=== PATIENT | male | born 1925 | race Caucasian/White ===

== ENCOUNTER 2017-05-12 05:13 | Inpatient (IN) | payer MEDICARE, OTHER ==
[~2017-05-12] VITALS: Ht 180.3 cm; Wt 92.1 kg
--- NOTE | ~2017-05-12 | CON ---
PATIENT'S NAME: JENIFER MEJÍA [facility] AGE: 89 Y [address] ROOM: G6332 [place], [place] [address] LOCATION: GPCU ADMIT DATE: 05/12/2017 Consultation DISCHARGE DATE: FAMILY PHYSICIAN: MARLIN SIDHU MD (ALMA) ATTENDING PHYSICIAN: DARLENE SÁNCHEZ REFERRING PHYSICIAN: Darlene Sánchez MD HISTORY OF PRESENT ILLNESS: The patient is an 89-year-old man who went last night to the emergency room in [facility] reporting several episodes of dyspnea at rest with chest discomfort and intense diaphoresis. Evaluation there showed that there were some changes in his electrocardiogram, but not ST elevation or depression. The troponin was negative. The proBNP was in the normal range and as the patient had a previous history of remote coronary intervention, Manda Jade PA-C who was in the facility contacted me for consultation. She sent me the electrocardiogram which had a new incomplete right bundle and S1- Q3-T3 configuration. Unfortunately, we could not obtain the D-dimer at [facility] and the patient could not have a CT angiogram or the chest because of compromised renal function. So the plan was to start him on intravenous heparin and then transport him to [facility] for a definite diagnosis and management. The evaluation also at [facility] showed a possible pneumonia on the right side on his chest x-ray. The patient then arrived at [facility] in stable condition. REVIEW OF SYSTEMS: There is no weight loss or gain. He has chronic dyspnea on exertion and he saw some specialists for that, he tells me about 2 years ago and he did not think that he was improved and he did not follow up. He has no history of syncope. He has nocturia x2 or 3 and difficulty initiating a stream of urine without recent evaluation of his prostate. He has recurrent diarrhea. He follows with the [facility] in [place] and yearly with [facility] from [place]. The patient still lives in his own home with his and continues to drive, remaining systems were negative. PAST SURGICAL HISTORY: None. PAST MEDICAL HISTORY: Coronary artery disease. The patient according to a note from [facility], he had a directional atherectomy of the left anterior descending artery in 1992, and subsequent catheterization in 2010 showed a patent left anterior descending and occluded diagonal and medical therapy was recommended. He had an echocardiogram in 2014 which showed a normal ejection fraction of 55% to 60% and pulmonary hypertension with estimated 59 mmHg systolic. OUTPATIENT MEDICATIONS: PATIENT'S NAME: JENIFER MEJÍA [facility] AGE: 89 Y [address] ROOM: G6332 [place], [place] [address] LOCATION: GPCU ADMIT DATE: 05/12/2017 Consultation DISCHARGE DATE: FAMILY PHYSICIAN: MARLIN SIDHU MD (ALMA) ATTENDING PHYSICIAN: DARLENE SÁNCHEZ 1. Omeprazole 40 mg once a day. 2. Ranitidine 150 mg once a day. 3. Triamterene and hydrochlorothiazide 50/25 half a tablet daily. 4. Metoprolol tartrate 50 mg half a tablet daily. 5. Simvastatin 40 mg half a tablet daily. 6. Clopidogrel 75 mg daily. 7. Multivitamin once a day. 8. Tamsulosin 0.4 mg daily. 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 Quit smoking about 30 years ago. No significant alcohol use. FAMILY HISTORY: Both his parents in their 90s. His father had a stroke and [facility]. His mother from pneumonia. PHYSICAL EXAMINATION: GENERAL: Alert, elderly gentleman. VITAL SIGNS: He is 5 feet 11 inches, weighs 89.7 kg. Heart rate was 72 beats per minute on the electrocardiogram and blood pressure 144/88. Saturation 99% on 2 L. SKIN: Warm and dry. There is discoloration above the ankles, especially on the right side. HEAD: Normocephalic and atraumatic. EYES: No xanthelasmas. NECK: Supple. No jugular venous distention. No carotid bruits. LUNGS: Overall clear. HEART: First and second heart sounds. No significant murmur. Occasional ectopy. CHEST: There is increased anterior-posterior diameter of the chest, especially on the right side. ABDOMEN: Soft and nontender. No masses. LOWER EXTREMITIES: Trace edema. There is normal left dorsalis pedis pulse, possibly decreased on the right side. DIAGNOSTIC STUDIES: In addition to what I discussed in the history of present illness, his BUN was 32, creatinine 1.67, potassium 3.2, alkaline phosphatase 263, AST 52, ALT 73, proBNP 331, CK-MB 0.9, estimated GFR 39. PT and PTT normal. Troponin is below the measurable scale. WBC 6.1, hemoglobin 15, hematocrit 44.5, platelets 143. Electrocardiogram, sinus rhythm with premature atrial contractions. New incomplete right bundle-branch block. IMPRESSION: PATIENT'S NAME: JENIFER MEJÍA [facility] AGE: 89 Y [address] ROOM: [place] [address] LOCATION: GPCU ADMIT DATE: 05/12/2017 Consultation DISCHARGE DATE: FAMILY PHYSICIAN: MARLIN SIDHU MD (ALMA) ATTENDING PHYSICIAN: DARLENE SÁNCHEZ The differential is between pulmonary embolism, unstable angina, and pneumonia. We will continue anticoagulation with heparin. We will send a stat D-dimer and if it is elevated, the patient will have a perfusion ventilation scan of his lungs and if necessary, pharmacologic stress test 48 hours later. We will get a CT of the chest without contrast because of the reported consolidation on the right side and history of hiatal hernia. We will get a prostate specific antigen because of the reported nocturia and elevated alkaline phosphatase. We will continue his statin and clopidogrel. The patient reports an allergy to aspirin with rashes. Also obtain an echocardiogram. Thank you for allowing [facility] to participate in the care of your patient. PANAYOTIS-NADJA LENNON MD PE/modl /[id number] d: 05/12/17 1322 t: 05/16/17 1506, CONSULTATION REPORT
--- NOTE | ~2017-05-12 | HP ---
PATIENT'S NAME: JENIFER MEJÍA [facility] AGE: 89 Y [address] ROOM: [place] [address] LOCATION: GPCU ADMIT DATE: 05/12/2017 History & Physical DISCHARGE DATE: FAMILY PHYSICIAN: PHYSICIAN, UNKNOWN ATTENDING PHYSICIAN: DARLENE CARCAMO DATE OF SERVICE: CHIEF COMPLAINT: Chest tightness. HISTORY OF PRESENT ILLNESS: An 89-year-old very pleasant gentleman with a past medical history of coronary artery disease with a PCI done to LAD back in 1992, also has history of hypertension and chronic kidney disease, woke up in the middle of the night around midnight with diaphoresis. He walked around and went back to bed. It happened again at 3:00 in the morning; he again woke up drenched in sweats; only this time, he had a chest tightness which was 5/10, located in the center of the chest. No radiation. No alleviating or aggravating factors. Not associated with nausea or vomiting; was associated with some shortness of breath. It triggered visit to the emergency department. On further inquiry, he said he is not feeling dizzy and does not have shortness of breath. No cough, no sputum production. No abdominal pain. No constipation or diarrhea. No burning on urination. No extremity swelling. relayed the information that he had not felt good for the past 3-4 days. He had body aches and had been short of breath. REVIEW OF SYSTEMS: All other systems reviewed and were negative except what is mentioned in the HPI. PAST MEDICAL HISTORY: Coronary artery disease, status post PCI back in 1992; hypertension; hyperlipidemia; and chronic kidney disease, stage 3. MEDICATIONS: Being reconciled right now. ALLERGIES: THE PATIENT IS ALLERGIC TO ASPIRIN. SOCIAL HISTORY: Quit smoking 25 years ago. Before that, he smoked 1 pack per day for over 50 years. PATIENT'S NAME: JENIFER MEJÍA [facility] AGE: 89 Y [address] ROOM: [place] [address] LOCATION: GPCU ADMIT DATE: 05/12/2017 History & Physical DISCHARGE DATE: FAMILY PHYSICIAN: PHYSICIAN, UNKNOWN ATTENDING PHYSICIAN: DARLENE CARCAMO FAMILY HISTORY: Negative for any coronary artery disease or any chronic disease running in the family. PHYSICAL EXAMINATION: VITAL SIGNS: Blood pressure 160/70, heart rate 68, afebrile, saturating 99% on 1 L of oxygen. GENERAL: No acute distress. Alert and oriented x3. HEENT: Head: Atraumatic, normocephalic. Eyes: Nonicteric. No pallor. Oropharynx: Dry mucous membranes. CARDIOVASCULAR: S1, S2. No murmurs, gallops, or rubs. LUNGS: Clear to auscultation bilaterally. ABDOMEN: Soft, nontender, nondistended. Bowel sounds present. EXTREMITIES: No clubbing or cyanosis. Right leg varicose veins noted. PSYCH: Normal affect, mood, and speech. MUSCULOSKELETAL: No muscle tenderness or joint swelling noted. ENDOCRINE: No thyromegaly or myxedema noted. LYMPHATICS: No lymphadenopathy or lymphangitis noted. LABORATORY DATA: Lab work from outside facility was reviewed, which was impressive for a creatinine of 1.6 and potassium of 3.2. AST was 52, alkaline phosphatase was 162. GFR was 39. Here in our facility, first set of troponin is negative, creatinine is 1.6. Chest x-ray was done, of which I have report available, which did show right upper lobe consolidation as well as right pleural effusion. EKG was done, which did show normal sinus rhythm with incomplete right bundle-branch block; does not see any ischemic ST-T wave changes per my read. ASSESSMENT: 1. Pneumonia, right upper lobe. 2. Hypokalemia. 3. Acute kidney injury on chronic kidney disease 3. 4. Questionable unstable angina. 5. Hypertension. 6. Hyperlipidemia. PLAN: We are going to admit this patient. We will start some volume resuscitation and replacement of potassium. Heparin drip per ACS protocol has been started. We will get D-dimers. Very unlikely pulmonary embolism given his low Wells score. We will get echocardiography done and Cardiology involved. We will start him on antibiotics directed against community-acquired pneumonia PATIENT'S NAME: JENIFER MEJÍA [facility] AGE: 89 Y [address] ROOM: [id number] [place] [id number] [facility] ADMIT DATE: 05/12/2017 History & Physical DISCHARGE DATE: FAMILY PHYSICIAN: PHYSICIAN, UNKNOWN ATTENDING PHYSICIAN: KHALID,COLON A organisms. We will obtain serial troponin levels and sputum cultures. Further management will depend on his course in the hospital. The patient is okay to do chest compression, but no intubation. All this diagnosis and plan of management was discussed with the patient who voiced understanding and agreement. MD YA VILLA/piyush /[id number] D: [id number] T: [id number] HISTORY & PHYSICAL
--- NOTE | ~2017-05-12 | ECHO ---
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 Summary The estimated left ventricular ejection fraction is 60%. Mild to moderate concentric left ventricular hypertrophy. Diastolic assessment reveals Grade I to II diastolic dysfunction . Mild to moderately dilated right ventricle. Normal right ventricular systolic performance. Mild bileaflet mitral valve prolapse. Trivial mitral regurgitation. There is moderate pulmonary hypertension. The pulmonary pressure (RVSP) is 56 mmHg. Mild tricuspid regurgitation . Procedure Type of Study TTE procedure:2D Echocardiogram, M-Mode, Doppler , Color Doppler. Procedure Date Date: 05/12/2017 Start: 07:29 AM Study Location: Inpatient Portable Technical Quality: Adequate visualization Indications:Chest pain. Additional Indications:Possible Pulmonary embolus. Appropriate Use Criteria: 9 Patient Status: Routine HR: 63 bpm BP: 164/97 mmHg M-Mode/2D Measurements LV Diastolic Dimension: 4.03 cm LV Systolic Dimension: 2.75 cm LV Septum Diastolic: 1.3 cm LV PW Diastolic: 1.72 cm AO Root Dimension: 3.4 cm Cardiac Output: 3.5 l/min AV Cusp Separation: 1.8 cm RV Diastolic Dimension: 2.72 cm LA volume: 127 ml MV EPSS: 0.6 cm LVOT: 2 cm RV Base: 3.2 cm LVOT VTI: 17.7 cm RV Mid: 3.9 cm LV Stroke volume: 55.58 ml TAPSE: 3.3 cm TDI-S': 24 cm/s Doppler Measurements AV Peak Velocity: 1.14 m/s MV Peak E-Wave: 0.68 m/s AV Peak Gradient: 5.2 mmHg MV Peak A-Wave: 0.76 m/s AV Mean Gradient: 2 mmHg MV E/A Ratio: 0.9 LVOT Peak Velocity: 0.79 m/s MV P1/2t: 76 msec TR Gradient:43.03 mmHg PV Peak Velocity: 1.07 m/s Estimated RAP:10 mmHg PV Peak Gradient: 4.58 mmHg Estimated RVSP: 53 mmHg Estimated PASP: 53.03 mmHg E' Septal Velocity: 0.07 m/s A' Septal Velocity: 0.13 m/s E' Lateral Velocity: 0.05 m/s A' Lateral Velocity: 0.13 m/s MV E/E' Ratio: 9.8 Findings Left Ventricle Mild to moderate concentric left ventricular hypertrophy. Diastolic assessment reveals Grade I to II diastolic dysfunction . Right Ventricle Mild to moderately dilated right ventricle. Normal right ventricular systolic performance. Left Atrium The left atrium is moderately dilated. Right Atrium Right atrium is not well seen. Mitral Valve Mild bileaflet mitral valve prolapse. Trivial mitral regurgitation. Aortic Valve Normal aortic valve structure and function. Tricuspid Valve There is moderate pulmonary hypertension. The pulmonary pressure (RVSP) is 56 mmHg. Mild tricuspid regurgitation . Pulmonic Valve Normal pulmonic valve structure and function. Pericardial Effusion Trivial posterior pericardial effusion. Miscellaneous Visualized portions of the aortic root and ascending aorta appear normal in size. IVC is not dilated. Pleural Effusion No evidence of pleural effusion. Contractility Score LV regional wall motion:(0-Non visualized 1-Normal 2-Hypokinesis 3-Akinesis 4-Dyskinesis 5-Aneurysm) Signature dtt: Liseth Lees dtd: 05/12/17 0729 Physician Self Edit
--- NOTE | ~2017-05-12 | ESTC ---
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 Conclusions Summary Cardiolite SPECT images demonstrate homogenous uptake of radioactive tracer. NO evidence of inducible reversible defect and no evidence of underlying fixed defect. TID is increased at 1.19 which may serve as a surrogate marker of ischemia. Gated images demonstrate normal left ventricular systolic function without inducible wall motion abnormalities, LVEF is 77% Stress Protocols Resting ECG RSR with non specific T wave changes Resting HR:71 bpm Resting BP:143/70 mmHg Pre-stress physical exam: Patient assessed by Gayle Davison APRN prior to testing. Stress Protocol:Pharmacologic Peak HR:96 bpm HR response: Appropriate Peak BP:146/76 mmHg BP response: Appropriate Predicted HR: 131 bpm HR/BP product:81603 % of predicted HR: 73 Reason for termination:Infusion complete ECG Findings No ECG changes suggestive of ischemia. Arrhythmias No rhythm abnormality. Symptoms Shortness of breath. Stress Interpretation Appropriate hemodynamic response to Lexiscan. No significant ST-T wave changes with Lexiscan. ECG portion is negative for ischemia by diagnostic criteria. Stress supervision and interpretation provided by Lily Davison APRN . Imaging Results Applied corrections - Motion correction applied High risk findings Summed scores - Summed stress score: 20 - Summed rest score: 17 - Summed difference score: 3 Stress ejection Ejection fraction:77 % EDV :102 ml ESV :23 ml Stroke volume :79 ml LV mass :132 gr Imaging Protocols Rest Stress Isotope:Tc99m Sestamibi IV Isotope: Tc99m Sestamibi IV Isotope dose:13.5 mCi Isotope dose:42.1 mCi Date:05/14/2017 08:47 Date:05/14/2017 10:04 Technique: SPECT Technique: Gated Supine SPECT Supine IV remains in place after procedure. Scan Time:45-60 minutes post Scan Time:45-60 minutes post injection injection Procedure Medications - Regadenoson (Lexiscan) 0.4 mg IV over 10-15 sec. I.V. 0.4 mg. Medications administered per verbal order and read back to physician prior to administration. Medical History Admission Data Admission date: 05/12/2017 Admission Time: 06:18 Hospital Status: Inpatient. Signatures dtt: Cristian Betancourt (cardio) dtd: 05/14/17 0953 Physician Self Edit
--- NOTE | ~2017-05-12 | DS ---
PATIENT'S NAME: JENIFER MEJÍA [facility] AGE: 89 Y [address] ROOM: [address] [place], [place] [address] LOCATION: GPCU ADMIT DATE: 05/12/2017 Discharge Summary DISCHARGE DATE: 05/15/2017 FAMILY PHYSICIAN: Marlin Gomez MD ATTENDING PHYSICIAN: Mikal Sánchez FINAL DIAGNOSES: 1. Pneumonia/bronchitis. 2. Acute diaphoresis. 3. Acute kidney injury and stage 3 chronic kidney disease. 4. Coronary artery disease. 5. Essential hypertension. 6. Dyslipidemia. Please see the history and physical dictated by Dr. Sánchez in terms of reason for admission. The patient was transferred from the [facility] after he had presented there in the middle of the night with an acute episode of diaphoresis and chest tightness in the center of his chest. He went to the [place] [facility], and at that time, there was concern that this could be an anginal equivalent. An x-ray was done there that did show a right upper lobe consolidation. He was transferred here for further evaluation and admitted to PCU. LABORATORY DATA: On admission sodium 141, at discharge 141; potassium on admission 3.7, it was remained stable at discharge; BUN on admission was 28, at discharge 20; creatinine on admission 1.6, at discharge 1.3. His cardiac enzymes were negative x6. His procalcitonin on admission was 2.49 and then at most prior to discharge is 1.16. UA was negative. Culture data, urine culture was negative. X-RAY DATA: A chest CT without contrast was done on admission showed emphysematous changes. A large hiatal hernia. V/Q scan was read as low probability. Spiral cut CT scan done on the , did not show a pulmonary embolism. He did have chronic emphysematous changes. Cardiovascular studies, an echocardiogram was done and showed that his EF was 60%, he had moderate concentric left ventricular hypertrophy and grade 1-2 diastolic dysfunction. He had mild pulmonary hypertension. A stress test was done and was negative for inducible ischemia; however, he did have evidence of left ventricular dilation, which was concerned could be an anginal equivalent. HOSPITAL COURSE: The patient was admitted to PCU. He was started on a heparin drip. Cardiac enzymes were obtained. He was started on oral Levaquin. Dr. Lees did see him from a Cardiology standpoint. Because of his kidney function, his spiral cut CT scan was not done, they did a V/Q scan. It did return as low probability. He had received significant IV PATIENT'S NAME: JENIFER MEJÍA [facility] AGE: 89 Y [address] ROOM: [facility] [place] [address] [facility] ADMIT DATE: 05/12/2017 Discharge Summary DISCHARGE DATE: 05/15/2017 FAMILY PHYSICIAN: Marlin Gomez MD ATTENDING PHYSICIAN: Mikal Sánchez. His kidney function improved and it was felt that his spiral cut CT scan needed to be done because there was a high suspicion of PE. Cardiology did decide to proceed with a stress test which was done on the morning of the . The spiral CT scan returned without the PE. Stress test, there was some concern that the dilation could be an anginal equivalent. I did speak with the patient and we opted to see what Dr. Lees want to do in terms of catheterization. Dr. Lees felt that the stress test was negative and the patient could be discharged to home. He is discharged to home. He is to see Dr. Gomez in 1 week, the [facility] environmental scientists that goes to [place]. We will see him in followup. MEDICATIONS: 1. Zocor 20 mg at bedtime. 2. Plavix 75 mg daily. 3. Levaquin 750 mg every 48 hours, stop date May 22. 4. Levothroid 25 mcg daily. 5. Lopressor 25 mg daily. 6. Multivitamin daily. 7. Prilosec 20 mg twice daily. 8. Flomax 0.4 mg twice daily. 9. Ibuprofen 400 mg at bedtime if needed. 10. He was advised to stop the Dyazide based upon his kidney function on admission. JUAN MANUEL KHOURY MD LAW/modl /[id number] CC: MD MARLIN Gallego MD ([facility]MA) d: t: 05/17/17 1245, DISCHARGE SUMMARY
[2017-05-12 07:14] LABS: BASOPHIL % 0.7 %; EOSINOPHIL # 0.2 K/uL (0.0-0.5); EOSINOPHIL % 3.4 %; HEMATOCRIT 45.3 % (33.0-50.0); HEMOGLOBIN 15.3 g/dL (11.0-16.0); IMMATURE GRANULOCYTE % 0.5 %; LYMPHOCYTE # 1.3 K/uL (0.8-4.0); LYMPHOCYTE % 22.5 %; MCH 32.4 pg (27.0-34.0); MCHC 33.8 gm/dL (32.0-36.5); MONOCYTE # 0.9 K/uL (0.0-1.0); MONOCYTE % 16.8 %; MPV 10.3 fl (9.4-12.4); NEUTROPHIL # (ANC) 3.1 K/uL (1.4-9.0); NEUTROPHIL % 56.1 %; NRBC % 0 /100WBC (0-0.00); PLATELET COUNT 147 K/uL (150-450); RBC 4.72 M/uL (3.50-5.50); RDW-CV 13.8 % (11.9-14.6); WBC 5.6 K/uL (4.0-11.0)
[2017-05-12 07:32] LABS: ANION GAP 10.7 (10.0-19.0); BLOOD UREA NITROGEN 28 mg/dL (6-24); CALCIUM 8.9 mg/dL (8.5-10.5); CHLORIDE 104 mMol/L (96-110); CO2 30 mMol/L (22-32); CPK 66 IU/L (35-332); CREATININE 1.6 mg/dL (0.6-1.3); POTASSIUM 3.7 mMol/L (3.7-5.1); SODIUM 141 mMol/L (135-145)
[2017-05-12] MEDS ORDERED: PRILOSEC20 MG PO (09:46)
[2017-05-12] MEDS ORDERED: TRIAMTERENE-HC1 EAC1 PO (09:48)
[2017-05-12 09:56] LABS: INR - (THERAPEUTIC) 1.02 (0.92-1.07); PROTIME 10.7 SECONDS (9.8-11.4)
[2017-05-12] MEDS ORDERED: LOPRESSOR50 MG PO (10:08)
[2017-05-12] MEDS ORDERED: ZOCOR40 MG PO (10:09)
[2017-05-12] MEDS ORDERED: THERAGRAN-M1 TAB PO (10:09)
[2017-05-12] MEDS ORDERED: PLAVIX75 MG PO (10:09)
[2017-05-12] MEDS ORDERED: LEVOTHROID (SY25 MCG PO (10:10)
[2017-05-12] MEDS ORDERED: ADVIL200 MG PO (10:10)
[2017-05-12] MEDS ORDERED: FLOMAX0.4 MG PO (10:10)
[2017-05-13 07:04] LABS: HEMATOCRIT 42.6 % (33.0-50.0); HEMOGLOBIN 14.6 g/dL (11.0-16.0); MCH 32.5 pg (27.0-34.0); MCHC 34.3 gm/dL (32.0-36.5); MCV 94.9 fl (83.0-98.0); MPV 10.3 fl (9.4-12.4); PLATELET COUNT 135 K/uL (150-450); RBC 4.49 M/uL (3.50-5.50); RDW-CV 13.7 % (11.9-14.6); WBC 6.8 K/uL (4.0-11.0)
[2017-05-13 07:19] LABS: ALBUMIN 2.7 gm/dL (3.5-5.0); ANION GAP 10.9 (10.0-19.0); CALCIUM 8.7 mg/dL (8.5-10.5); CREATININE 1.3 mg/dL (0.6-1.3); PHOSPHORUS 2.1 mg/dL (2.5-4.9); POTASSIUM 3.9 mMol/L (3.7-5.1)
[2017-05-13 07:37] LABS: ABSOLUTE NEUTROPHIL CT (ANC) 3.6 K/uL (1.4-9.0); BANDED NEUTROPHIL # 0.3 K/uL (0.0-0.1); BANDED NEUTROPHILS % 4 %; LYMPHOCYTE # 1.8 K/uL (0.8-4.0); LYMPHOCYTE % 27 %; SEGMENTED NEUTROPHIL # 3.3 K/uL (1.4-9.0); SEGMENTED NEUTROPHIL % 49 %
[2017-05-14 02:14] LABS: BASOPHIL % 0.5 %; EOSINOPHIL # 0.3 K/uL (0.0-0.5); EOSINOPHIL % 3.6 %; HEMATOCRIT 39.5 % (33.0-50.0); HEMOGLOBIN 13.5 g/dL (11.0-16.0); IMMATURE GRANULOCYTE % 0.5 %; LYMPHOCYTE # 1.8 K/uL (0.8-4.0); LYMPHOCYTE % 23.9 %; MCH 32.4 pg (27.0-34.0); MCHC 34.2 gm/dL (32.0-36.5); MCV 94.7 fl (83.0-98.0); MONOCYTE % 12.7 %; MPV 10.4 fl (9.4-12.4); NEUTROPHIL # (ANC) 4.5 K/uL (1.4-9.0); NEUTROPHIL % 58.8 %; NRBC % 0 /100WBC (0-0.00); PLATELET COUNT 148 K/uL (150-450); RBC 4.17 M/uL (3.50-5.50); RDW-CV 13.7 % (11.9-14.6); WBC 7.7 K/uL (4.0-11.0)
[2017-05-14 02:29] LABS: ALBUMIN 2.6 gm/dL (3.5-5.0); ANION GAP 11.7 (10.0-19.0); CALCIUM 8.4 mg/dL (8.5-10.5); CREATININE 1.3 mg/dL (0.6-1.3); MAGNESIUM 2.3 mg/dL (1.8-2.6); PHOSPHORUS 2.1 mg/dL (2.5-4.9); POTASSIUM 3.7 mMol/L (3.7-5.1)
[2017-05-14 09:15] LABS: BILIRUBIN URINE NEGATIVE (NEGATIVE); BLOOD URINE NEGATIVE /UL (NEGATIVE); COLOR URINE YELLOW (YELLOW); GLUCOSE URINE NEGATIVE (NEGATIVE); KETONE URINE NEGATIVE (NEGATIVE); LEUKOCYTES URINE NEGATIVE /UL (NEGATIVE); NITRITE URINE NEGATIVE (NEGATIVE); PROTEIN URINE NEGATIVE (NEGATIVE); SPEC GRAVITY URINE 1.015 (1.003-1.035); TURBIDITY URINE CLEAR (CLEAR); UROBILINOGEN URINE NORMAL (NORMAL)
[2017-05-15 05:55] LABS: BASOPHIL # 0.1 K/uL (0.0-0.2); BASOPHIL % 0.8 %; EOSINOPHIL # 0.4 K/uL (0.0-0.5); EOSINOPHIL % 6.5 %; HEMATOCRIT 38.9 % (33.0-50.0); IMMATURE GRANULOCYTE % 0.6 %; LYMPHOCYTE # 1.6 K/uL (0.8-4.0); LYMPHOCYTE % 25.3 %; MCH 31.6 pg (27.0-34.0); MCHC 33.4 gm/dL (32.0-36.5); MCV 94.4 fl (83.0-98.0); MONOCYTE # 0.7 K/uL (0.0-1.0); MONOCYTE % 10.9 %; MPV 9.9 fl (9.4-12.4); NEUTROPHIL # (ANC) 3.6 K/uL (1.4-9.0); NEUTROPHIL % 55.9 %; NRBC % 0 /100WBC (0-0.00); PLATELET COUNT 158 K/uL (150-450); RBC 4.12 M/uL (3.50-5.50); RDW-CV 13.7 % (11.9-14.6); WBC 6.5 K/uL (4.0-11.0)
[2017-05-15] MEDS ORDERED: LEVAQUIN750 MG PO (13:16)
== END 2017-05-15 13:45 | disposition disaster alternative care site (69) | DRG 194 ==
LOC: GPCU 06:18
PROVIDERS: Internal Medicine; ADMIT Internal Medicine
DX: J18.9 Pneumonia, unspecified organism (principal); N17.9 Acute kidney failure, unspecified; J20.9 Acute bronchitis, unspecified; N18.3 Chronic kidney disease, stage 3 (moderate); I12.9 Hypertensive chronic kidney disease with stage 1 through stage 4 chronic kidney disease, or unspecified chronic kidney disease; E78.5 Hyperlipidemia, unspecified; I25.10 Atherosclerotic heart disease of native coronary artery without angina pectoris
CPT/HCPCS: A9500; A9539; A9540; J0280; J1644; J1940; J2785; J3475; J7120; Q9967